=== PATIENT | female | born 1955 | race Caucasian/White ===

== ENCOUNTER 2018-09-04 09:10 | Emergency (ER) | payer OTHER ==
[~2018-09-04] VITALS: Ht 165.1 cm; Wt 145.0 kg
[~2018-09-04 09:10] MED LIST: AMLO10TA80 PO; BENA20TA10 PO; FLUT1DIS3 IH; GEMF600T4 PO; IBUP-2030 PO; ISOSORBIDE PO; LEVE500T19 PO; MONT10TA24 PO; NIACIN; NITRO; VENTOLIN
[2018-09-04] MEDS ORDERED: ONDANSETRON HCL 4MG/2ML INJ IV STA (10:24)
[2018-09-04] MEDS ORDERED: SODIUM CHLORIDE 0.9% 1,000 ML IV ONE (10:24)
[2018-09-04] MEDS ORDERED: FAMOTIDINE 20MG/2ML VIAL IV STA (10:24)
[2018-09-04 11:41] LABS: CHLORIDE 107 mEq/L (98-107); HEMATOCRIT. 30.6 % (36.0-48.0); HEMOGLOBIN. 10.6 g/dL (12.0-16.0); INR 1.2; MEAN CORPUSCULAR HEMOGLOBIN 33.3 pg (28.0-32.0); MEAN CORPUSCULAR VOLUME 95.9 fL (81.0-99.0); MEAN PLATELET VOLUME 6.9 fl (7.4-10.4); PLATELET 141 x1000/uL (130-400); PROTHROMBIN TIME 12.2 sec (9.1-11.1); RED BLOOD CELL COUNT 3.19 mill/uL (4.2-5.4); RED CELL DISTRIBUTION WIDTH 16.3 % (11.6-14.6)
[2018-09-04] MEDS ORDERED: POTASSIUM CHLORIDE 20MEQ TABLET SR PO ONE (11:45)
[2018-09-04 12:12] LABS: PLATELET ESTIMATE NORMAL
[2018-09-04] MEDS ORDERED: MORPHINE SULFATE 4 MG/ML CPJ (NOT FOR IM USE) IV ONE (12:30)
[2018-09-04] MEDS ORDERED: MORPHINE SULFATE 2 MG/ML CPJ (NOT FOR IM USE) IV NR (13:00)
[2018-09-04 13:04] LABS: CLARITY URINE CLOUDY (CLEAR); COLOR URINE YELLOW (YELLOW); KETONES URINE NEGATIVE (NEGATIVE); LEUKOCYTE ESTERASE URINE 3+ (NEGATIVE); NITRITE URINE NEGATIVE (NEGATIVE); OCCULT BLOOD URINE TRACE (NEGATIVE); PROTEIN URINE TRACE (NEGATIVE); SPECIFIC GRAVITY URINE 1.012 (1.005-1.030); UROBILINOGEN URINE 0.2 E.U./dL (0.2-1.0)
[2018-09-04] MEDS ORDERED: CEFTRIAXONE 1 G PREMIX 50 ML IV ONE (13:15)
[2018-09-04] MEDS ORDERED: IOHEXOL-350 100 ML BOTTLE ONE (13:40)
[2018-09-04] MEDS ORDERED: IOHEXOL-300 100 ML BOTTLE ONE (13:40)
[2018-09-04 14:00] VITALS: BP 138/82
== END 2018-09-04 16:20 | disposition short-term general hospital (02) ==
LOC: ER 09:35 → EDBEDREQTM 12:40 → EDBEDREQ 12:40 → CANBEDREQ 13:32 → ER 16:20
DX: E86.0 Dehydration (principal); E87.6 Hypokalemia; D64.9 Anemia, unspecified; N39.0 Urinary tract infection, site not specified; C21.8 Malignant neoplasm of overlapping sites of rectum, anus and anal canal; J45.909 Unspecified asthma, uncomplicated; E78.00 Pure hypercholesterolemia, unspecified; I10 Essential (primary) hypertension; I25.2 Old myocardial infarction; I20.9 Angina pectoris, unspecified; Z98.890 Other specified postprocedural states; Z79.899 Other long term (current) drug therapy
CPT/HCPCS: 36415; 71045; 74177; 80053; 81003; 83605; 83690; 84484; 85025; 85610; 86850; 86900; 86901; 87077; 87086; 87186; 93005; 96361; 96365; 96375; 99285; J0696; J2270; J2405; J3490; J7030; Q9967